=== PATIENT | female | born 1990 | race Caucasian/White ===

== ENCOUNTER 2018-04-23 02:53 | Inpatient (IN) | payer BC ==
[2018-04-23] MEDS ORDERED: hydrOXYzine HCl 25 MG TAB PO ONE (04:31)
[2018-04-23] MEDS ORDERED: Ringers Lactate 1,000 ML IV PRN (07:10)
[2018-04-23] MEDS ORDERED: METHYLERGONOVINE 0.2MG/ML AMP IM PRN ×2 (07:10→14:38)
[2018-04-23] MEDS ORDERED: ROPIVACAINE HCL 100 ML IV PRN (07:44)
[2018-04-23] MEDS ORDERED: CLINDAMYCIN 900MG/D5W 900 MG/50 ML BAG IV ONE (07:44)
[2018-04-23] MEDS ORDERED: ROPIVACAINE HCL 0.2% 20ML AMP SQ ONE (07:44)
[2018-04-23] MEDS ORDERED: FENTANYL CITR 100 MCG/2 ML IV ONE ×2 (07:45→13:52)
[2018-04-23] MEDS ORDERED: Ringers Lactate 1,000 ML IV SCH (08:00)
[2018-04-23 08:08] LABS: RPR Titer ND
[2018-04-23 08:12] LABS: Absolute Lymphocytes (CBC) 2.1 K/uL (0.7-4.9); Absolute Monocytes 0.5 K/uL (0.1-1.3); Absolute Neutrophil 13.1 K/uL (1.8-8.0); Basophils % 0.4 % (0-1.3); Eosinophils % 0.3 % (0-4.4); Hematocrit 37.4 % (36.0-45.0); Lymphocytes % 13.5 % (15.3-44.8); MCH 29.7 pg (27.0-35.0); MCV 87.5 fL (80-100); MPV 10.2 fL (7.6-11.3); Monocytes % 3.2 % (3.3-12.3); RBC Red Blood Cell Count 4.27 M/uL (3.86-4.86); Urine Appearance CLEAR; Urine Bilirubin NEGATIVE (NEG); Urine Blood 2+ (NEG); Urine Color YELLOW; Urine Glucose NEGATIVE (NEG); Urine Protein NEGATIVE (NEG); Urine Urobilinogen 0.2 mg/dL (0.2-1.0)
[2018-04-23 08:23] LABS: Urine Microscopic Reflex ORDER UMIC
[2018-04-23 08:24] LABS: Urine Bacteria 20-50 /HPF (<20); Urine Culture Reflex Order REFLEXED
[2018-04-23] MEDS ORDERED: BUTORPHANOL 1 MG/ML INJ ONE (08:26)
[2018-04-23] MEDS ORDERED: PROMETHAZINE 25 MG/ML VIAL ONE (08:26)
[2018-04-23] MEDS ORDERED: CLINDAMYCIN INJ 900 MG in NA CHLORIDE 0.9% 50 ML IV SCH (09:00)
[2018-04-23] MEDS ORDERED: OXYTOCIN/LR 20 UNIT/1,000 ML BAG IV SCH ×2 (09:00→15:00)
[2018-04-23 09:22] VITALS: BMI 32.8
--- NOTE | 2018-04-23 11:08 | PREOPHP ---
Date of Admission: 04/23/2018 History Of Present Illness: Ms. Arredondo is a 28-year-old female, 1, para 0 , at approximately 39-5/7 weeks gestation. She presents to Labor and Delivery complaining of contrac tions for evaluation. She denies rupture of membranes or significant vaginal bleeding. She has been followed by Dr. Turcios during this without significant complications other than tests which are positive for beta strep carriage in the genitourinary tract. Past Medical History: Please see record. Family History: Please see record. Review of Systems: She reports no recent cough, cold, fever, or chills. No recent nausea or vomiting. She denies any b reast lumps. Infant has been active. She denies any bowel or bladder issues. Physical Examination: General: Reveals a young female in mild discomfort. Neck: Supple without adenopathy or thyromegaly. Lungs: Clear. Cardiac: Regular rate and rhythm, without murmurs. Breasts: Not examined. Abdomen: Estimated weight of 6+ to 7+ pounds. Pelvic: Cervix now 70+ percent effaced, 3 cm dilated. Cervix is soft, anterior, vertex at -1 statio n. Extremities: Trace lower extremity edema. Assessment/plan: She has been observed for about a 2-1/2-hour period of time and has changed from ap proximately 2.5 to 3 cm. I believe she is in prodromal labor. We will admit, prophylax with Cleocin because of penicillin allergy, and rupture of membranes augment with Pitocin and place an epidural catheter. TISHA/STEPHANIE Voice ID: [id number]
[2018-04-23] MEDS ORDERED: ROPIVACAINE HCL 20 ML ONE (13:33)
[2018-04-23] MEDS ORDERED: FENTANYL CITR 100 MCG/2 ML ONE (13:59)
[2018-04-23] MEDS ORDERED: CARBOPROST TROME 250 MCG/ML IM ONE (14:19)
[2018-04-23] MEDS ORDERED: ONDANSETRON 4 MG (ODT) TAB PO PRN (14:38)
[2018-04-23] MEDS ORDERED: CARBOPROST TROME 250 MCG/ML IM PRN (14:38)
[2018-04-23] MEDS ORDERED: Oxycodone HCl/Acetaminophen 1 TAB TAB PO PRN (14:38)
[2018-04-23] MEDS ORDERED: METHYLERGONOVINE 0.2 MG TAB PO PRN (14:38)
--- NOTE | 2018-04-23 14:42 | P.BOP ---
Preoperative diagnosis: 39+ week , prolonged latent phase of labor Postoperative diagnosis: same, delivered, mild uterine atony Primary procedure: scvd Secondary procedure: repair midline laceration Estimated blood loss: less than 500ml Anesthesia: epidural Complications: Other (mild uterine atony) Condition: Good
[2018-04-23] MEDS ORDERED: Ringers Lactate 2,000 ML IV ONE (17:46)
[2018-04-24 00:21] LABS: RPR (Rapid Plasma Reagin) NON-REACT (NON-REACT)
[2018-04-24] MEDS: IBUPROFEN 200 MG TAB PO PRN ×2 (00:46→10:52)
--- NOTE | 2018-04-24 03:24 | OP ---
Surgeon: Radames Diggs MD Delivery Note: Ms. Arredondo is a 28-year-old female, 1, para 0, at approxim ately 39 and 5/7th weeks gestation. She is admitted in prodromal labor with possible prolonged laten t phase of labor. She was noted to be 3 cm on admission. After a dose of Cleocin was given for beta strep prophylaxis secondary to penicillin allergy. Rupture of membranes was performed, Pitocin missy ction of labor was begun, and she had an epidural catheter placed with good effect. She did receive 1 mg of Stadol, 12.5 mg of Phenergan IV x1 prior to placement of epidural catheter. She had a first stage of labor 6 hours and 15 minutes, second stage of labor 23 minutes. She delivered by spontaneou s controlled vaginal delivery a 7-pound 4-ounce male infant, 9 and 9. After delayed cord clamp ing, the cord was clamped and cut, and the infant was placed on mother's upper abdomen. Cord blood w as obtained. The placenta was spontaneously expelled and appeared to be intact. She suffered a midl ine second-degree laceration, which was repaired in the usual fashion with 3-0 Vicryl. Because of mi ld uterine atony, she was given 1 dose of methargen IM. Estimated total blood loss was less than 500 cc. Cord around the neck x1 was noted at the time of delivery. TISHA/STEPHANIE Voice ID: [id number] Report ID: [id number]
[2018-04-24] MEDS ORDERED: DOCUSATE CALCIUM 240 MG CAP PO ONE (06:21)
[2018-04-24] MEDS ORDERED: DOCUSATE CALCIUM 240 MG CAP PO SCH (09:00)
[2018-04-24 15:31] VITALS: BP 116/78; TEMP 98.4
[2018-04-25 03:35] LABS: HBsAG Nonreactive (Nonreactive)
--- NOTE | 2018-04-25 08:29 | DS ---
Date of Discharge: 04/24/2018 DISMISSAL SUMMARY Final Hospital Discharge Diagnoses: A 39 plus week , delivery of viable male , blood loss anemia secondary to uterine atony. Complications: Uterine atony, blood loss anemia. Procedures: Artificial rupture of membranes, Pitocin augmentation of labor, spontaneous controlled v aginal delivery of viable male infant, repair of second-degree perineal laceration. Hospital Course: The patient is a 28-year-old female, 1, para 0, at 39 plu s weeks' gestation, admitted in prodromal labor. She was prophylaxed with Cleocin for beta strep car riage. She had a delivery of a 7-pound 3-ounce male infant with epidural anesthesia. She had mild p ostpartum atony treated with vigorous fundal massage, 1 dose of methargen. She was dismissed on s t day, ambulatory, on a select diet with routine vaginal delivery activity restrictions. Lab work included admission hemoglobin and hematocrit of 12.7 and 37.4, dismissal of 28.6. She is Rh positive blood type and RPR nonreactive. Rubella immune. She was dismissed with prescription for T ylenol No. 3 #10 for pain relief, to continue taking her vitamins, to be seen back by Dr. Lorrie villarreal in followup in approximately 6 weeks. She was dismissed with the usual post vaginal delivery act ivity restrictions. TISHA/STEPHANIE Voice ID: [id number] Report ID: [id number]
== END 2018-04-24 16:50 | disposition home or self-care (01) | DRG 774 ==
LOC: L&D 02:53 → 2ND-WC 07:10
PROVIDERS: ADMIT Specialist; ATTEND Student in an Organized Health Care Education/Training Program
PROC: 10E0XZZ Delivery of Products of Conception, External Approach (ICD-10-PCS; principal; 2018-04-23)
PROC: 0KQM0ZZ Repair Perineum Muscle, Open Approach (ICD-10-PCS; 2018-04-23)
PROC: 10907ZC Drainage of Amniotic Fluid, Therapeutic from Products of Conception, Via Natural or Artificial Opening (ICD-10-PCS; 2018-04-23)
DX: O70.1 Second degree perineal laceration during delivery (principal); O72.1 Other immediate postpartum hemorrhage; Z37.0 Single live birth; D62 Acute posthemorrhagic anemia; O90.81 Anemia of the puerperium; O69.81X0 Labor and delivery complicated by cord around neck, without compression, not applicable or unspecified; O99.824 Streptococcus B carrier state complicating childbirth; Z3A.39 39 weeks gestation of pregnancy; Z88.0 Allergy status to penicillin
CPT/HCPCS: 36415; 81003; 81015; 85014; 85025; 86592; 86901; 87086; 87088; 87340; J0595; J2210; J2550; J2590; J2795; J3010